=== PATIENT | male | born 1965 | race Caucasian/White ===

== ENCOUNTER 2020-03-29 13:59 | Emergency (ER) | payer BC, OTHER ==
[2020-03-29] MEDS ORDERED: Cephalexin 500 MG Cap PO ONE (14:00)
[2020-03-29 14:04] VITALS: BP 139/86; PULSE 85
[2020-03-29] MEDS ORDERED: Lidocaine 1% 20 ML MDV INJECT ONE (14:31)
--- NOTE | 2020-03-29 14:32 | EDM.PDOC ---
ED HPI GENERAL MEDICAL PROBLEM - General Chief Complaint: Laceration Stated Complaint: L 3rd and 4th digit lac Time Seen by Provider: 03/29/20 14:22 Source of Information: Reports: Patient History Limitations: Reports: No Limitations - History of Present Illness INITIAL COMMENTS - FREE TEXT/NARRATIVE: Patient to the emergency department where he was working on pipes and he was carrying approximately 200 pound pipe and he fell, "crushing" his left hand third and fourth digits at the PIP aspect with a laceration. Bleeding is controlled. The patient's tetanus shot is greater than 5 years. The patient has no numbness or tingling. Denies any proximal hand pain or wrist pain. No other symptoms. The patient is wearing gloves at that time. Onset: Today, Sudden Duration: Hour(s): Location: Reports: Upper Extremity, Left Quality: Reports: Ache Severity: Moderate Improves with: Reports: None Worsens with: Reports: Movement Context: Reports: Trauma Associated Symptoms: Reports: No Other Symptoms Treatments MAILROOM PERSONNEL: Reports: Other (see below) (none) - Related Data Allergies Allergy/AdvReac Type Severity Reaction Status Date / Time No Known Allergies Allergy Verified 03/29/20 15:27 Home Meds: Home Meds cephALEXin [Keflex] 500 mg PO QID 7 Days #28 capsule 03/29/20 [Rx] Past Medical History - Past Health History Medical/Surgical History: Denies Medical/Surgical History Social & Family History - Family History Family Medical History: Noncontributory - Tobacco Use Smoking Status *Q: Never Smoker Second Hand Smoke Exposure: No - Caffeine Use Caffeine Use: Reports: None - Recreational Drug Use Recreational Drug Use: No ED ROS GENERAL - Review of Systems Review Of Systems: See Below Constitutional: Reports: No Symptoms Respiratory: Reports: No Symptoms Cardiovascular: Reports: No Symptoms GI/Abdominal: Reports: No Symptoms. Denies: Nausea, Vomiting Musculoskeletal: Reports: Hand Pain. Denies: Neck Pain, Back Pain Skin: Reports: Wound (Laceration on fourth digit left hand at the PIP aspect) Neurological: Reports: No Symptoms. Denies: Numbness, Tingling, Weakness Psychiatric: Reports: No Symptoms ED EXAM, SKIN/RASH Exam: See Below Exam Limited By: No Limitations General Appearance: Alert, WD/WN, No Apparent Distress Head: Atraumatic, Normocephalic Neck: Normal Inspection, Supple, Non-Tender, Full Range of Motion Respiratory/Chest: No Respiratory Distress, Lungs Clear, Normal Breath Sounds, Chest Non-Tender Cardiovascular: Normal Peripheral Pulses, Regular Rate, Rhythm Peripheral Pulses: 2+: Radial (L), Radial (R) GI/Abdominal: Soft, Non-Tender Back Exam: Normal Inspection, Full Range of Motion Extremities: Normal Range of Motion, Normal Capillary Refill Neurological: Alert, Oriented, Normal Cognition, Normal Gait, No Motor/Sensory Deficits Psychiatric: Normal Affect, Normal Mood Skin: Warm, Dry, Normal Color. No: Intact Location, Skin: Upper Extremity, Left (2 cm laceration to the DIP aspect of the third digit left hand and 1 cm laceration to the PIP aspect of the fourth digit left hand) Characteristics: Linear Associated features: Tenderness ED SKIN PROCEDURES - Laceration/Wound Repair Left Upper Anterior Digit - 4th (Ring) Appearance: Subcutaneous, Linear Distal NVT: Neuro & Vascular Intact Anesthetic Type: Digital Local Anesthesia - Lidocaine (Xylocaine): 1% Plain Local Anesthetic Volume: 4cc Skin Prep: Saline, Sterile Drape Exploration/Debridement/Repair: Wound Explored, In a Bloodless Field, Explored to Base, No Foreign Material Found Closed with: Sutures Lac/Wound length In cm: 1 Suture Size: 5-0 # of Sutures: 3 Suture Type: Nylon, Interrupted Sterile Dressing Applied: Provider Tetanus Status Addressed: Yes Complications: No Left Anterior Digit - 3rd (Middle) Appearance: Subcutaneous, Linear Distal NVT: Neuro & Vascular Intact Anesthetic Type: Digital Local Anesthesia - Lidocaine (Xylocaine): 1% Plain Local Anesthetic Volume: 4cc Skin Prep: Saline, Sterile Drape Exploration/Debridement/Repair: Wound Explored, In a Bloodless Field, Explored to Base, No Foreign Material Found Closed with: Sutures Lac/Wound length In cm: 1.5 Suture Size: 5-0 # of Sutures: 7 Suture Type: Nylon, Interrupted Sterile Dressing Applied: Provider Tetanus Status Addressed: Yes Complications: No - Splinting Left 3rd Digit Splint Site: Aluminum foam Pre-Procedure NV Status: Normal Post-Procedure NV Status: Normal Splint Material: Aluminum-Foam Splint Design: Volar Applied & Form Fitted By: Provider Provider Post-Splint Application NV Check: NV Status Normal Complications: Yes Course - Vital Signs Text/Narrative:: [id number] patient was evaluated in the emergency department, the patient was advised the need to suture the wound at the risk and benefits was explained the patient agreed to proceed. Both fingers were cleaned and then infiltrated with 4 mL total in of each finger for digital block. There is 2 mL of each side of the third and fourth digit. After the ears were numbed appropriately, the wounds were completely cleaned and irrigated with normal saline to bloodless field no foreign body noted. No obvious tendon injury. The patient has full range of motion with and without resistance of both digits of the left hand third and fourth. There were 3 sutures that were placed in the laceration of the fourth digit and there were 7 sutures placed in the third digit of the left hand. X- rays been called to x-ray the digits as this was a crush type injury and the imaging is still pending. Patient was given a tetanus shot (TDAP), see the nursing notes for details. Last Recorded V/S: Last Vital Signs Temp 36.6 C 03/29/20 14:03 Pulse 85 03/29/20 14:03 Resp 14 03/29/20 14:03 BP 139/86 03/29/20 14:03 Pulse Ox 99 03/29/20 14:03 - Orders/Labs/Meds Orders: Active Orders 24 hr Category Date Time Status Vaccines to be Administered [RC] PER UNIT ROUTINE Care 03/29/20 14:49 Active Hand 2V Lt [CR] Stat Exams 03/29/20 14:50 Stop Req Hand Comp Min 3V Lt [CR] Stat Exams 03/29/20 15:20 Taken Meds: Medications Discontinued Medications Generic Name Dose Route Start Last Admin Trade Name Freq PRN Reason Stop Dose Admin Cephalexin 2 packet 03/29/20 15:38 Take Home: Cephalexin 500 Mg, 4 Cap Pack PO 03/29/20 15:39 ONETIME ONE Diphtheria/Tetanus/Acell Pertussis 0.5 ml 03/29/20 14:49 03/29/20 14:50 Adacel IM 03/29/20 14:50 0.5 ml .ONCE ONE Administration Lidocaine HCl 20 ml 03/29/20 14:31 03/29/20 14:40 Xylocaine 1% INJECT 03/29/20 14:32 20 ml ONETIME ONE Administration Departure - Departure Time of Disposition: 15:39 Disposition: Home, Self-Care 01 Condition: Good Clinical Impression: Laceration of finger of left hand - Discharge Information *PRESCRIPTION DRUG MONITORING PROGRAM REVIEWED*: Not Applicable *COPY OF PRESCRIPTION DRUG MONITORING REPORT IN PATIENT YONNY: Not Applicable Prescriptions: cephALEXin [Keflex] 500 mg PO QID 7 Days #28 capsule Instructions: Laceration Care, Adult, [id number], Sutures, [place], or Adhesive Wound Closure, [id number] Referrals: Matias Mack MD [Primary Care Provider] - Forms: ED Department Discharge Additional Instructions: Keep the wound clean and dry Apply thin coating Neosporin 3 times a day Keflex 500 mg 4 times a day for 7 days Alternate Tylenol Motrin as needed for any pain Sepsis Event Note (ED) - Evaluation Sepsis Screening Result: No Definite Risk - Focused Exam Vital Signs: Vital Signs Temp Pulse Resp BP Pulse Ox 03/29/20 14:03 36.6 C 85 14 139/86 99 - Problem List & Annotations (1) Laceration of finger of left hand SNOMED Code(s): 291246471 Code(s): S61.219A - LACERATION W/O FB OF UNSP FINGER W/O DAMAGE TO NAIL, INIT Status: Acute Priority: Medium Current Visit: Yes Qualifiers: Encounter type: initial encounter Finger: middle finger Damage to nail status: without damage Foreign body presence: without foreign body Qualified Code(s): S61.213A - Laceration without foreign body of left middle finger without damage to nail, initial encounter - Problem List Review Problem List Initiated/Reviewed/Updated: Yes - My Orders Last 24 Hours: My Active Orders 03/29/20 14:49 Vaccines to be Administered [RC] PER UNIT ROUTINE 03/29/20 14:50 Hand 2V Lt [CR] Stat 03/29/20 15:20 Hand Comp Min 3V Lt [CR] Stat - Assessment/Plan Last 24 Hours: My Active Orders 03/29/20 14:49 Vaccines to be Administered [RC] PER UNIT ROUTINE 03/29/20 14:50 Hand 2V Lt [CR] Stat 03/29/20 15:20 Hand Comp Min 3V Lt [CR] Stat
[2020-03-29] MEDS ORDERED: Diphtheria,Pertussis(Acell),Tetanus Vaccine 0.5 ML Syringe IM ONE (14:49)
[2020-03-29] MEDS ORDERED: Take Home: Cephalexin 500 MG Cap, 4 Cap Pack PO ONE (15:38)
== END 2020-03-29 16:03 | disposition home or self-care (01) ==
LOC: CC.ED 13:59 → MERGE 13:59 → CC.ED 16:03
DX: S61.213A Laceration without foreign body of left middle finger without damage to nail, initial encounter (principal); S61.215A Laceration without foreign body of left ring finger without damage to nail, initial encounter; Z23 Encounter for immunization; W20.8XXA Other cause of strike by thrown, projected or falling object, initial encounter
CPT/HCPCS: 12001; 73130; 90471; 90715; 99283; A9270; J2001

== ENCOUNTER 2025-01-23 13:45 | Emergency (ER) | payer BC ==
[2025-01-23 14:04] VITALS: BP 135/78; PULSE 84
[2025-01-23] MEDS: Ketorolac 30 MG/ML SDV IM ONE (14:11)
[2025-01-23] MEDS: Ondansetron 4 MG Tab.DIS PO ONE (14:12)
[2025-01-23 14:19] LABS: APPEARANCE,URINE CLEAR (CLEAR); BILIRUBIN,URINE NEGATIVE (NEGATIVE); COLOR,URINE YELLOW (YELLOW); GLUCOSE,URINE NEGATIVE (NEGATIVE); KETONES,URINE NEGATIVE (NEGATIVE); LEUKOCYTE ESTERASE,URINE NEGATIVE (NEGATIVE); NITRITE,URINE NEGATIVE (NEGATIVE); OCCULT BLOOD,URINE TRACE-INTACT (NEGATIVE); PROTEIN,URINE TRACE mg/dL (NEGATIVE); UROBILINOGEN,URINE 0.2 EU/dL (0.2-1.0)
[2025-01-23 14:28] LABS: BACTERIA,URINE NOT SEEN /HPF (NOT SEEN); EPITHELIAL CELLS,URINE RARE /HPF (NOT SEEN); MUCUS,URINE OCCASIONAL /HPF (NOT SEEN); WBC,URINE NOT SEEN /HPF (0-5)
[2025-01-23] MEDS: Cyclobenzaprine 10 MG Tab PO ONE (15:21)
[2025-01-23] MEDS: HYDROmorphone 0.5 MG/0.5 ML Syringe SUBCUT STA (15:21)
== END 2025-01-23 16:15 | disposition home or self-care (01) ==
LOC: CC.ED 13:45
DX: M62.830 Muscle spasm of back (principal); G89.29 Other chronic pain; Z79.899 Other long term (current) drug therapy
CPT/HCPCS: 74176; 81001; 96372; 99284; A9270-GY; J1171; J1885